=== PATIENT | female | born 1975 | race Two or more races ===

== ENCOUNTER 2021-06-17 16:54 | Emergency (ER) | payer OTHER ==
[~2021-06-17] VITALS: Ht 157.5 cm; Wt 52.2 kg
[2021-06-17] MEDS ORDERED: ALPRAZOLAM2 MG PO (17:05)
[2021-06-17] MEDS ORDERED: RESTORIL30 MG PO (17:06)
[2021-06-17] MEDS ORDERED: ARIPIPRAZOLE10 MG PO (17:06)
== END 2021-06-17 18:45 | disposition home or self-care (01) ==
LOC: ER 16:54
DX: A49.3 Mycoplasma infection, unspecified site (principal); Z20.822 Contact with and (suspected) exposure to COVID-19

== ENCOUNTER → 2022-04-26 | Emergency (ER) | payer OTHER ==
[~2022-04-26] VITALS: Ht 160 cm; Wt 64.9 kg
[~2022-04-26] MED LIST: ALPRAZOLAM2 MG PO; ARIPIPRAZOLE10 MG PO; RESTORIL30 MG PO
== END | disposition left against medical advice (07) ==
LOC: ER 13:56
DX: Z53.21 Procedure and treatment not carried out due to patient leaving prior to being seen by health care provider (principal)

== ENCOUNTER 2022-08-24 16:03 | Emergency (ER) | payer OTHER ==
[~2022-08-24] VITALS: Ht 157.5 cm; Wt 59.0 kg
== END 2022-08-24 20:36 | disposition home or self-care (01) ==
LOC: ER 16:03
DX: M54.59 Other low back pain (principal); M54.2 Cervicalgia; M25.562 Pain in left knee; V49.9XXA Car occupant (driver) (passenger) injured in unspecified traffic accident, initial encounter; Y93.9 Activity, unspecified; Y92.9 Unspecified place or not applicable; Y99.9 Unspecified external cause status